=== PATIENT | female | born 1940 | race Caucasian/White ===

== ENCOUNTER 2019-03-29 18:08 | Emergency (ER) | payer MEDICARE, BC ==
[~2019-03-29] VITALS: Ht 160 cm; Wt 56.7 kg
[2019-03-29] MEDS ORDERED: [UNRECOGNIZED DRUG - REMARK] PO (18:26)
[2019-03-29] MEDS ORDERED: STATIN MED PO (18:26)
--- NOTE | 2019-03-29 18:30 | NUR ---
Patient assessed to be alert and oriented x4, EKG performed as ordered. at bedside.
--- NOTE | 2019-03-29 18:45 | NUR ---
IV started on right forearm 20g and labs were drawn per Dr. beltran
[2019-03-29 18:59] LABS: BASOPHILS # (AUTO) 0.1 K/uL (0.0-8.0); BASOPHILS % (AUTO) 1.3 % (0.0-2.0); EOSINOPHILS # (AUTO) 0.3 K/uL (0.0-0.7); EOSINOPHILS % (AUTO) 3.2 % (0.0-7.0); HEMATOCRIT 42.5 % (31.2-41.9); HEMOGLOBIN 14.2 g/dL (10.9-14.3); LYMPHOCYTES # (AUTO) 1.7 K/uL (20.0-40.0); LYMPHOCYTES % (AUTO) 20.7 % (20.5-51.5); MEAN CORPUSCULAR HEMOGLOBIN 29.2 uug (24.7-32.8); MEAN CORPUSCULAR HGB CONC 34 g/dL (32.3-35.6); MEAN CORPUSCULAR VOLUME 87.3 fL (75.5-95.3); MONOCYTES # (AUTO) 0.8 K/uL (2.0-10.0); MONOCYTES % (AUTO) 9.8 % (0.0-11.0); NEUTROPHILS # (AUTO) 5.2 K/uL (1.8-8.9); PLATELET COUNT (AUTO) 212 K/uL (179-408); RED BLOOD CELL COUNT(AUTO) 4.87 MIL/uL (3.63-4.92); WHITE BLOOD COUNT (AUTO) 8.1 K/uL (3.8-11.8)
--- NOTE | 2019-03-29 19:00 | NUR ---
RECEIVED HAND OFF FROM DAY SHIFT RN. PT IS SEEN LAYING ON GURNEY AT SEMI-ROBISON'S POSITION. NAD. +FOREARM SALINE LOCK STILL INTACT @[id number]. PENDING URINE SAMPLE. PT KEPT WARM DRY AND COMFORTABLE. MONITORED ACCORDINGLY
--- NOTE | 2019-03-29 19:06 | NUR ---
report given to incoming rn. French
[2019-03-29 19:09] LABS: CARBON DIOXIDE 24 mmol/L (21-32); CHLORIDE 107 mmol/L (98-107); CREATININE 0.7 mg/dL (0.6-1.3); GLUCOSE 101 mg/dL (74-106); POTASSIUM 3.9 mmol/L (3.5-5.1); UREA NITROGEN, BLOOD 18 mg/dL (7-18)
[2019-03-29 19:15] LABS: *BILIRUBIN,URIN NEGATIVE (NEGATIVE); *BLOOD, URINE 1+ (NEGATIVE); *COLOR,URINE YELLOW (YELLOW); *KETONES,URINE NEGATIVE (NEGATIVE); *UROBILINOGEN,URINE 0.2 E.U./dl (NORMAL); LEUKOCYTE ESTERASE ,URINE TRACE (NEGATIVE); NITRITE, URINE POSITIVE (NEGATIVE); PH,URINE 5.5 (5.0-8.0); UGLUCOSE NEGATIVE (NEGATIVE)
[2019-03-29 19:21] LABS: *CLARITY,URINE HAZY (CLEAR)
[2019-03-29 19:22] LABS: ALANINE AMINOTRANSFERASE 16 U/L (14-59); ALKALINE PHOSPHATASE 80 U/L (50-136); ASPARTATE AMINOTRANSFERASE 19 U/L (15-37); BILIRUBIN,DIRECT 0.1 mg/dL (0.0-0.2); BILIRUBIN,TOTAL 0.3 mg/dL (0.2-1.0); CHOLESTEROL 117 mg/dL (<200); HDL CHOLESTEROL 37 mg/dL (40-60); TOTAL PROTEIN, SERUM 7.4 g/dL (6.4-8.2); TRIGLYCERIDES 61 MG/DL (30-150)
[2019-03-29 19:24] LABS: BACTERIA,URINE MANY /HPF (NONE SEEN); MUCUS,URINE MODERATE /LPF (0-FEW); SQUAMOUS EPITHELIAL CELL,UR FEW /HPF (NONE SEEN)
[2019-03-29] MEDS ORDERED: TDAP DIPH,PERTUSS,TET VAC/PF 0.5 ML DISP.SYRIN IM ONE ×2 (19:45→20:12)
[2019-03-29] MEDS ORDERED: IV NS 1000 ML 1,000 ML IV ONE (19:45)
--- NOTE | 2019-03-29 20:26 | NUR ---
IV SITE SHIFTED TO LEFT HAND DORSAL. INTACT AND INFUSING WELL. ADMINISTERED TDAP ODERED. ABLE TO TOLERATE WILL CONTINUE TO MONITOR
--- NOTE | 2019-03-29 21:22 | NUR ---
able to tolerate ivf. dc ivf prior to dc. Patient discharged to home in stable conditon. Written and verbal after care instructions given. Patient verbalizes understanding of instructions. all belongings with pt
[2019-03-29 21:29] VITALS: BP 108/64
== END 2019-03-29 21:21 | disposition home or self-care (01) ==
LOC: ER 18:08
DX: I89.1 Lymphangitis (principal); N39.0 Urinary tract infection, site not specified; E86.0 Dehydration; F41.9 Anxiety disorder, unspecified; E78.5 Hyperlipidemia, unspecified; Z79.899 Other long term (current) drug therapy
CPT/HCPCS: 36415; 70030-TC; 85025; 87077; 87086; 90715; 93005; A4663; J7030